=== PATIENT | female | born 1985 | race Caucasian/White ===

== ENCOUNTER 2018-01-22 05:11 | Inpatient (IN) ==
--- NOTE | 2018-01-22 05:37 | Emergency Department Note ---
Disposition Clinical Impression: Suicidal ideation Fracture of fifth metacarpal bone of right hand Qualifiers: Encounter type: initial encounter Fracture type: closed Metacarpal location: neck Fracture alignment: nondisplaced Qualified Code(s): S62.366A - Nondisplaced fracture of neck of fifth metacarpal bone, right hand, initial encounter for closed fracture Disposition: Still a Patient Condition: Good Referrals: NONE,PCP [Primary Care Provider] - Forms: ED Satisfaction Letter Time of Disposition: 07:08 Psych HPI - General Chief Complaint: ED Psychiatric Symptoms Stated Complaint: SI Time Seen by Provider: 01/22/18 05:15 Source: patient Nursing Notes Reviewed: Yes Vital Signs Reviewed: Yes - History of Present Illness HPI Narrative: 32yo female presents from home via EMS for evaluation of suicidal ideation. Patient was in our department with her mother at home. Her sister awoke in her the patient verbalized that she wished to kill herself. She has a plan of overdosing on her medications. She is had 2 prior suicidal attempts by intentional overdose. The patient's anger, she hit a tree with her right hand and now has subsequent right hand pain. She is right-hand dominant. When asked why she was a tree she states that, "it was better than any my mom." She has no homicidal ideation. She has been drinking tonight. She had 2 shots of fireball to help her go to sleep. PMH: Depression, anxiety ROS: Positive: As above Negative: Fever, chills, nausea, vomiting, chest pain, palpitations, headache, changes in vision, abdominal pain, weakness, numbness, tingling - Related Data Allergies Allergy/AdvReac Type Severity Reaction Status Date / Time No Known Allergies Allergy Verified 01/22/18 05:18 All systems ED: reviewed and negative except as stated. Review of Systems: As Per HPI Past Medical History - Past Medical History Medical history: Reports: no medical history Psychiatric history: Reports: anxiety, depression - Social History Smoking Status: Former smoker Alcohol use: Reports: recent Drug use: Reports: prescription drug abuse Physical Exam Vital Signs Reviewed General: Patient is alert, oriented, and in no acute distress. Head: atraumatic, normocephalic Eye: normal appearance, PERRL, EOMI, no scleral icterus, no conjunctival injection ENT: mucous membranes moist, normal external ear exam Neck: normal inspection, trachea midline, full ROM Chest: normal inspection, symmetric chest rise Respiratory: Good respiratory effort. Bilateral breath sounds are clear without wheezing, crackles, or rhonchi. Cardiovascular: Regular rate and rhythm. No clicks, rubs, gallops, or murmors. Normal heart sounds. Abdomen: Bowel sounds present normoactive x-4 quadrants. Abdomen is soft, nondistended, and nontender. No guarding or rebound. No organomegaly noted. Musculoskeletal: Spontaneously moving all extremities. Tenderness over right fifth MCP joint with superficial overlying abrasion. Full range of motion right hand and wrist with finger to thumb opposition intact Skin: warm, dry, intact. Neuro: Alert and oriented x4. Sensation light touch intact. Psych: Patient's affect is appropriate for situation. - General Limitations: no limitations General appearance: alert, in no apparent distress Course Course Narrative: Patient clinically appears intoxicated. Will x-ray right hand and draw appropriate lab work needed for medical clearance. Anticipate prolonged emergency department stay she metabolizes EtOH prior to her evaluation by our mental health team. X-ray right hand shows boxer's fracture. Appropriate splint applied. Splint wrapped and secured with cast padding instead of Ger wrap as, theoretically, patient would be able to hang herself with Ger wrap however, cast padding would break. EtOH drawn at 05:50 is 150. Will redraw at 09:00. Patient has been signed out to the ED team, Dr. Carlson and Dr. Garner. Pending: Repeat EtOH and subsequent mental health evaluation. Final disposition pending mental health evaluation. Hand X-Ray 01/22/18 05:39 IMPRESSION: Acute 5th metacarpal fracture. D/ / Froylan Shafer MD / Froylan Shafer MD Interpreting Provider: Froylan Shafer MD Vital Signs Temperature 99.0 F 01/22/18 05:15 Pulse Rate 117 01/22/18 05:15 Respiratory Rate 16 01/22/18 05:15 Blood Pressure 140/89 01/22/18 05:15 O2 Sat by Pulse Oximetry 96 01/22/18 05:15 Temperature 99.0 F 01/22/18 05:15 Pulse Rate 117 01/22/18 05:15 Respiratory Rate 16 01/22/18 05:15 Blood Pressure 140/89 01/22/18 05:15 O2 Sat by Pulse Oximetry 96 01/22/18 05:15 Oxygen Delivery Oxygen Delivery Room Air Procedures - Orthopedic Splinting/Casting Injury #1 Side: right Upper Extremity Injury Location: hand Upper Extremity Immobilizer: ulnar gutter Psych - Lab Data Result diagrams: 01/22/18 05:27 01/22/18 05:27 Lab Results 01/22/18 01/22/18 01/22/18 Range/Units 05:27 05:27 05:27 WBC (4.3-11.1) K/mcL RBC (3.82-4.97) M/mcL Hgb (11.5-15.4) g/dL Hct (35.3-44.9) % MCV (83.0-100.0) fL MCH (28.0-33.3) pg MCHC (31.6-35.5) g/dL RDW (11.5-14.5) % Plt Count (140-400) K/mcL MPV (9.4-12.4) fL Immature Gran % (0-4) % Seg Neutrophils % % Lymphocytes % % Monocytes % % Eosinophils % % Basophils % % Neutrophils # (1.6-8.9) K/mcL Lymphocytes # (0.6-4.6) K/mcL Monocytes # (0.0-1.3) K/mcL Eosinophils # (0.0-0.6) K/mcL Basophils # (0.0-0.2) K/mcL Sodium (136-145) mEq/L Potassium (3.5-5.1) mEq/L Chloride (98-107) mEq/L Carbon Dioxide (23-29) mEq/L BUN (6-20) mg/dL Creatinine (0.60-1.20) mg/dL Est GFR ( Amer) (> 60) Est GFR (Non-Af Amer) (> 60) BUN/Creatinine Ratio (6-26) Glucose (70-105) mg/dL Calculated Osmolality (280-300) Calcium (8.6-10.3) mg/dL Urine Color Yellow (Yellow) Urine Clarity Clear (Clear) Urine pH 6.5 (5.0-8.0) pH Units Ur Specific [place] 1.012 (1.010-1.025) Urine Protein Negative (Neg-Trace) mg/dL Urine Glucose (UA) Normal (Normal) mg/dL Urine Ketones Negative (Negative) mg/dL Urine Blood Negative (Negative) Urine Nitrite Negative (Negative) Urine Bilirubin Negative (Negative) Urine Urobilinogen Normal (Normal) mg/dL Ur Leukocyte Esterase Negative (Negative) Urine Test Negative (Negative) Salicylates (15.0-30.0) mg/dL Urine Opiates Screen Negative (Vwfaoi=938) ng/mL Acetaminophen (10-20) mcg/mL Ur Barbiturates Screen Negative (Kmuthr=673) ng/mL Ur Phencyclidine Scrn Negative (Cutoff=25) ng/mL Ur Amphetamines Screen Negative (Ggjlfr=2522) ng/mL U Benzodiazepines Scrn Negative (Ozivfu=719) ng/mL Urine Cocaine Screen Negative (Cutoff= 300) ng/mL U Marijuana (THC) Screen Negative (Cutoff = 50) ng/mL Ur Drug Screen Interp See Below Ethyl Alcohol (Less than 10) mg/dL 01/22/18 01/22/18 Range/Units 05:27 05:27 WBC 11.5 H (4.3-11.1) K/mcL RBC 4.81 (3.82-4.97) M/mcL Hgb 15.0 (11.5-15.4) g/dL Hct 45.0 H (35.3-44.9) % MCV 93.6 (83.0-100.0) fL MCH 31.2 (28.0-33.3) pg MCHC 33.3 (31.6-35.5) g/dL RDW 12.5 (11.5-14.5) % Plt Count 379 (140-400) K/mcL MPV 9.7 (9.4-12.4) fL Immature Gran % 0.7 (0-4) % Seg Neutrophils % 57.5 % Lymphocytes % 31.8 % Monocytes % 8.2 % Eosinophils % 0.8 % Basophils % 1.0 % Neutrophils # 6.6 (1.6-8.9) K/mcL Lymphocytes # 3.7 (0.6-4.6) K/mcL Monocytes # 0.9 (0.0-1.3) K/mcL Eosinophils # 0.1 (0.0-0.6) K/mcL Basophils # 0.1 (0.0-0.2) K/mcL Sodium 141 (136-145) mEq/L Potassium 3.7 (3.5-5.1) mEq/L Chloride 110 H (98-107) mEq/L Carbon Dioxide 23 (23-29) mEq/L BUN 4 L (6-20) mg/dL Creatinine 0.76 (0.60-1.20) mg/dL Est GFR ( Amer) > 60 (> 60) Est GFR (Non-Af Amer) > 60 (> 60) BUN/Creatinine Ratio 5 L (6-26) Glucose 101 (70-105) mg/dL Calculated Osmolality 289 (280-300) Calcium 8.9 (8.6-10.3) mg/dL Urine Color (Yellow) Urine Clarity (Clear) Urine pH (5.0-8.0) pH Units Ur Specific [place] (1.010-1.025) Urine Protein (Neg-Trace) mg/dL Urine Glucose (UA) (Normal) mg/dL Urine Ketones (Negative) mg/dL Urine Blood (Negative) Urine Nitrite (Negative) Urine Bilirubin (Negative) Urine Urobilinogen (Normal) mg/dL Ur Leukocyte Esterase (Negative) Urine Test (Negative) Salicylates < 2.5 L (15.0-30.0) mg/dL Urine Opiates Screen (Hoooym=033) ng/mL Acetaminophen < 10 L (10-20) mcg/mL Ur Barbiturates Screen (Glpxzd=615) ng/mL Ur Phencyclidine Scrn (Cutoff=25) ng/mL Ur Amphetamines Screen (Qafmwl=7242) ng/mL U Benzodiazepines Scrn (Yhnosu=627) ng/mL Urine Cocaine Screen (Cutoff= 300) ng/mL U Marijuana (THC) Screen (Cutoff = 50) ng/mL Ur Drug Screen Interp Ethyl Alcohol 150 H (Less than 10) mg/dL Psychiatric Medical Clearance - Medical Clearance Checklist Medical History: No Social History Section defined Current Vitals: Last Vital Signs Temp 99.0 F 01/22/18 05:15 Pulse 117 01/22/18 05:15 Resp 16 01/22/18 05:15 BP 140/89 01/22/18 05:15 Pulse Ox 96 01/22/18 05:15 Psychiatric Lab Panel: Drug Levels and Toxicity 01/22/18 01/22/18 05:27 05:27 Urine Opiates Screen Negative Acetaminophen < 10 L Ur Barbiturates Screen Negative Ur Phencyclidine Scrn Negative Ur Amphetamines Screen Negative U Benzodiazepines Scrn Negative Urine Cocaine Screen Negative U Marijuana (THC) Screen Negative Ethyl Alcohol 150 H Abnormal Labs: Abnormal lab results WBC 11.5 K/mcL (4.3-11.1) H 01/22/18 05:27 Hct 45.0 % (35.3-44.9) H 01/22/18 05:27 Chloride 110 mEq/L (98-107) H 01/22/18 05:27 BUN 4 mg/dL (6-20) L 01/22/18 05:27 BUN/Creatinine Ratio 5 (6-26) L 01/22/18 05:27 Salicylates < 2.5 mg/dL (15.0-30.0) L 01/22/18 05:27 Acetaminophen < 10 mcg/mL (10-20) L 01/22/18 05:27 Ethyl Alcohol 150 mg/dL (Less than 10) H 01/22/18 05:27
[2018-01-22 05:41] LABS: Basophils # 0.1 K/mcL (0.0-0.2); Eosinophils # 0.1 K/mcL (0.0-0.6); Eosinophils % 0.8 %; Immature Granulocytes % 0.7 % (0-4); Lymphocytes # 3.7 K/mcL (0.6-4.6); Lymphocytes % 31.8 %; Mean Corpuscular HGB Conc 33.3 g/dL (31.6-35.5); Mean Corpuscular Hemoglobin 31.2 pg (28.0-33.3); Mean Corpuscular Volume 93.6 fL (83.0-100.0); Mean Platelet Volume 9.7 fL (9.4-12.4); Monocytes # 0.9 K/mcL (0.0-1.3); Monocytes % 8.2 %; Neutrophils # 6.6 K/mcL (1.6-8.9); Platelet Count 379 K/mcL (140-400); Red Blood Count 4.81 M/mcL (3.82-4.97); Red Cell Distribution Width 12.5 % (11.5-14.5); Segmented Neutrophils % 57.5 %
[2018-01-22 05:44] LABS: Bilirubin,Urine Negative (Negative); Blood,Urine Negative (Negative); Clarity,Urine Clear (Clear); Color,Urine Yellow (Yellow); Glucose,Urine (UA) Normal (Normal); Ketones,Urine Negative (Negative); Leukocyte Esterase,Urine Negative (Negative); Nitrite,Urine Negative (Negative); PH,Urine 6.5 pH Units (5.0-8.0); Protein,Urine Negative (Neg-Trace); Specific Gravity,Urine 1.012 (1.010-1.025); Urobilinogen,Urine Normal (Normal)
[2018-01-22 06:10] LABS: Acetaminophen < 10 mcg/mL (10-20); BUN/Creatinine Ratio 5 (6-26); Blood Urea Nitrogen 4 mg/dL (6-20); Calcium 8.9 mg/dL (8.6-10.3); Carbon Dioxide 23 mEq/L (23-29); Chloride 110 mEq/L (98-107); Ethanol 150 mg/dL (Less than 10); Glucose 101 mg/dL (70-105); Osmolality,Calculated 289 (280-300); Potassium 3.7 mEq/L (3.5-5.1); Salicylate < 2.5 mg/dL (15.0-30.0); Sodium 141 mEq/L (136-145); eGFR For Non-African Americans > 60 (> 60)
[2018-01-22 07:03] LABS: Amphetamine Screen,Urine Negative ng/mL (Cutoff=1000); Barbiturate Screen,Urine Negative ng/mL (Cutoff=200); Benzodiazepines Screen,Urine Negative ng/mL (Cutoff=200); Cannabinoid Screen,Urine Negative ng/mL (Cutoff = 50); Cocaine Screen,Urine Negative ng/mL (Cutoff= 300); Opiate Screen,Urine Negative ng/mL (Cutoff=300); Phencyclidine Screen,Urine Negative ng/mL (Cutoff=25)
--- NOTE | 2018-01-22 07:08 | Emergency Department Note ---
Disposition Clinical Impression: Suicidal ideation Fracture of fifth metacarpal bone of right hand Qualifiers: Encounter type: initial encounter Fracture type: closed Metacarpal location: neck Fracture alignment: nondisplaced Qualified Code(s): S62.366A - Nondisplaced fracture of neck of fifth metacarpal bone, right hand, initial encounter for closed fracture Disposition: Still a Patient Condition: Good Referrals: NONE,PCP [Primary Care Provider] - Forms: ED Satisfaction Letter General Adult HPI - General Chief complaint: ED Psychiatric Symptoms Stated complaint: SI Time Seen by Provider: 01/22/18 05:15 Source: patient Limitations: no limitations Nursing Notes Reviewed: Yes Vital Signs Reviewed: Yes - History of Present Illness Pain Scale: 4 - Related Data Allergies Allergy/AdvReac Type Severity Reaction Status Date / Time No Known Allergies Allergy Verified 01/22/18 05:18 Past Medical History - Past Medical History Medical history: Reports: no medical history Psychiatric history: Reports: anxiety, depression - Social History Smoking Status: Former smoker Alcohol use: Reports: recent Drug use: Reports: prescription drug abuse Physical Exam - General Limitations: no limitations General appearance: alert, in no apparent distress Course Vital Signs Temperature 99.0 F 01/22/18 05:15 Pulse Rate 117 01/22/18 05:15 Respiratory Rate 16 01/22/18 05:15 Blood Pressure 140/89 01/22/18 05:15 O2 Sat by Pulse Oximetry 96 01/22/18 05:15 Temperature 99.0 F 01/22/18 05:15 Pulse Rate 117 01/22/18 05:15 Respiratory Rate 16 01/22/18 05:15 Blood Pressure 140/89 01/22/18 05:15 O2 Sat by Pulse Oximetry 96 01/22/18 05:15 Oxygen Delivery Oxygen Delivery Room Air Medical Decision Making - Lab Data Lab results reviewed: Yes I reviewed the patient's lab results. Result diagrams: 01/22/18 05:27 01/22/18 05:27 Lab Results 01/22/18 01/22/18 01/22/18 Range/Units 05:27 05:27 05:27 WBC (4.3-11.1) K/mcL RBC (3.82-4.97) M/mcL Hgb (11.5-15.4) g/dL Hct (35.3-44.9) % MCV (83.0-100.0) fL MCH (28.0-33.3) pg MCHC (31.6-35.5) g/dL RDW (11.5-14.5) % Plt Count (140-400) K/mcL MPV (9.4-12.4) fL Immature Gran % (0-4) % Seg Neutrophils % % Lymphocytes % % Monocytes % % Eosinophils % % Basophils % % Neutrophils # (1.6-8.9) K/mcL Lymphocytes # (0.6-4.6) K/mcL Monocytes # (0.0-1.3) K/mcL Eosinophils # (0.0-0.6) K/mcL Basophils # (0.0-0.2) K/mcL Sodium (136-145) mEq/L Potassium (3.5-5.1) mEq/L Chloride (98-107) mEq/L Carbon Dioxide (23-29) mEq/L BUN (6-20) mg/dL Creatinine (0.60-1.20) mg/dL Est GFR ( Amer) (> 60) Est GFR (Non-Af Amer) (> 60) BUN/Creatinine Ratio (6-26) Glucose (70-105) mg/dL Calculated Osmolality (280-300) Calcium (8.6-10.3) mg/dL Urine Color Yellow (Yellow) Urine Clarity Clear (Clear) Urine pH 6.5 (5.0-8.0) pH Units Ur Specific [place] 1.012 (1.010-1.025) Urine Protein Negative (Neg-Trace) mg/dL Urine Glucose (UA) Normal (Normal) mg/dL Urine Ketones Negative (Negative) mg/dL Urine Blood Negative (Negative) Urine Nitrite Negative (Negative) Urine Bilirubin Negative (Negative) Urine Urobilinogen Normal (Normal) mg/dL Ur Leukocyte Esterase Negative (Negative) Urine Test Negative (Negative) Salicylates (15.0-30.0) mg/dL Urine Opiates Screen Negative (Ticpzy=653) ng/mL Acetaminophen (10-20) mcg/mL Ur Barbiturates Screen Negative (Yjlwry=755) ng/mL Ur Phencyclidine Scrn Negative (Cutoff=25) ng/mL Ur Amphetamines Screen Negative (Ubhctv=8259) ng/mL U Benzodiazepines Scrn Negative (Hhflcz=469) ng/mL Urine Cocaine Screen Negative (Cutoff= 300) ng/mL U Marijuana (THC) Screen Negative (Cutoff = 50) ng/mL Ur Drug Screen Interp See Below Ethyl Alcohol (Less than 10) mg/dL 01/22/18 01/22/18 Range/Units 05:27 05:27 WBC 11.5 H (4.3-11.1) K/mcL RBC 4.81 (3.82-4.97) M/mcL Hgb 15.0 (11.5-15.4) g/dL Hct 45.0 H (35.3-44.9) % MCV 93.6 (83.0-100.0) fL MCH 31.2 (28.0-33.3) pg MCHC 33.3 (31.6-35.5) g/dL RDW 12.5 (11.5-14.5) % Plt Count 379 (140-400) K/mcL MPV 9.7 (9.4-12.4) fL Immature Gran % 0.7 (0-4) % Seg Neutrophils % 57.5 % Lymphocytes % 31.8 % Monocytes % 8.2 % Eosinophils % 0.8 % Basophils % 1.0 % Neutrophils # 6.6 (1.6-8.9) K/mcL Lymphocytes # 3.7 (0.6-4.6) K/mcL Monocytes # 0.9 (0.0-1.3) K/mcL Eosinophils # 0.1 (0.0-0.6) K/mcL Basophils # 0.1 (0.0-0.2) K/mcL Sodium 141 (136-145) mEq/L Potassium 3.7 (3.5-5.1) mEq/L Chloride 110 H (98-107) mEq/L Carbon Dioxide 23 (23-29) mEq/L BUN 4 L (6-20) mg/dL Creatinine 0.76 (0.60-1.20) mg/dL Est GFR ( Amer) > 60 (> 60) Est GFR (Non-Af Amer) > 60 (> 60) BUN/Creatinine Ratio 5 L (6-26) Glucose 101 (70-105) mg/dL Calculated Osmolality 289 (280-300) Calcium 8.9 (8.6-10.3) mg/dL Urine Color (Yellow) Urine Clarity (Clear) Urine pH (5.0-8.0) pH Units Ur Specific [place] (1.010-1.025) Urine Protein (Neg-Trace) mg/dL Urine Glucose (UA) (Normal) mg/dL Urine Ketones (Negative) mg/dL Urine Blood (Negative) Urine Nitrite (Negative) Urine Bilirubin (Negative) Urine Urobilinogen (Normal) mg/dL Ur Leukocyte Esterase (Negative) Urine Test (Negative) Salicylates < 2.5 L (15.0-30.0) mg/dL Urine Opiates Screen (Relhcw=672) ng/mL Acetaminophen < 10 L (10-20) mcg/mL Ur Barbiturates Screen (Iywofp=747) ng/mL Ur Phencyclidine Scrn (Cutoff=25) ng/mL Ur Amphetamines Screen (Binjuy=3628) ng/mL U Benzodiazepines Scrn (Biahgr=367) ng/mL Urine Cocaine Screen (Cutoff= 300) ng/mL U Marijuana (THC) Screen (Cutoff = 50) ng/mL Ur Drug Screen Interp Ethyl Alcohol 150 H (Less than 10) mg/dL - Radiology Data Radiology results reviewed: Yes I reviewed the patient's radiology results. Hand X-Ray 01/22/18 05:39 IMPRESSION: Acute 5th metacarpal fracture. D/ / Froylan Shafer MD / Froylan Shafer MD Interpreting Provider: Froylan Shafer MD Attestation Statement - Attestation Attestation: I, Severino Michael MD, personally evaluated this patient and discussed their management with the resident physician. I reviewed the resident's note and agree with the documented findings, medical decision making, and plan of care. 32-year-old female persisted emergency department by embolus with a complaint of suicidal ideations. Patient has a prior history of suicidal ideation and suicide attempts. She states that she has a plan to take an overdose of pills. She also complains of pain in her right hand after she punched a tree with her fist tonight. On examination patient is a well-developed well-nourished well-appearing female in no acute distress. She is alert and oriented 3. No cyanosis or diaphoresis. Patient pleasant and cooperative. Breath sounds clear and equal bilaterally. Heart regular rate and rhythm. Abdomen soft and nontender with normal bowel sounds. There is some tenderness and swelling over the ulnar aspect of the right hand. X-ray of the right hand shows a boxer's fracture of the fifth metacarpal. An ulnar gutter splint was applied and held in place with cast padding. Labs reviewed. Alcohol 150. At shift change patient is signed out to the oncoming dayshift physician, Dr. Carlson.
--- NOTE | 2018-01-22 07:39 | Emergency Department Note ---
Disposition Clinical Impression: Suicidal ideation Fracture of fifth metacarpal bone of right hand Qualifiers: Encounter type: initial encounter Fracture type: closed Metacarpal location: neck Fracture alignment: nondisplaced Qualified Code(s): S62.366A - Nondisplaced fracture of neck of fifth metacarpal bone, right hand, initial encounter for closed fracture Disposition: Admitted As Inpatient Condition: Good Referrals: NONE,PCP [Primary Care Provider] - Forms: ED Satisfaction Letter Time of Disposition: 10:46 General Adult HPI - General Chief complaint: ED Psychiatric Symptoms Stated complaint: SI Time Seen by Provider: 01/22/18 05:15 Source: patient Limitations: no limitations - History of Present Illness Pain Scale: 4 - Related Data Allergies Allergy/AdvReac Type Severity Reaction Status Date / Time No Known Allergies Allergy Verified 01/22/18 05:18 Past Medical History - Past Medical History Medical history: Reports: no medical history Psychiatric history: Reports: anxiety, depression - Social History Smoking Status: Former smoker Alcohol use: Reports: recent Drug use: Reports: prescription drug abuse Physical Exam - General Limitations: no limitations General appearance: alert, in no apparent distress Course Course Narrative: 32-year-old female presents emergency room for suicidal ideation. Patient is intoxicated. Screening labs were ordered by the attending physicians. See detailed documentation the physical exam and medical recommendations that time. Psychiatric team is pending evaluation and disposition will be determined. Patient otherwise stable and resting comfortably in the bed at this time. Patient does have a splint applied to the extremity at this time secondary to punching a wall. This has soft padding noted at this point with no Ger bandage applied - Reevaluation(s) Reevaluation #1: Patient has been evaluated by the psychiatric team. [place] slip will be applied the patient will be admitted to our facility for continuation of management care. Time: 10:45 Vital Signs Temperature 99.0 F 01/22/18 05:15 Pulse Rate 117 01/22/18 05:15 Respiratory Rate 16 01/22/18 05:15 Blood Pressure 140/89 01/22/18 05:15 O2 Sat by Pulse Oximetry 96 01/22/18 05:15 Temperature 99.0 F 01/22/18 05:15 Pulse Rate 117 01/22/18 05:15 Respiratory Rate 16 01/22/18 05:15 Blood Pressure 140/89 01/22/18 05:15 O2 Sat by Pulse Oximetry 96 01/22/18 05:15 Oxygen Delivery Oxygen Delivery Room Air Medical Decision Making - MDM Narrative Medical decision making narrative: Intoxication, suicidal ideation - Medical Records Medical records reviewed: Yes I reviewed the patient's medical records. - Lab Data Lab results reviewed: Yes I reviewed the patient's lab results. Result diagrams: 01/22/18 05:27 01/22/18 05:27 Lab Results 01/22/18 01/22/18 01/22/18 Range/Units 05:27 05:27 05:27 WBC (4.3-11.1) K/mcL RBC (3.82-4.97) M/mcL Hgb (11.5-15.4) g/dL Hct (35.3-44.9) % MCV (83.0-100.0) fL MCH (28.0-33.3) pg MCHC (31.6-35.5) g/dL RDW (11.5-14.5) % Plt Count (140-400) K/mcL MPV (9.4-12.4) fL Immature Gran % (0-4) % Seg Neutrophils % % Lymphocytes % % Monocytes % % Eosinophils % % Basophils % % Neutrophils # (1.6-8.9) K/mcL Lymphocytes # (0.6-4.6) K/mcL Monocytes # (0.0-1.3) K/mcL Eosinophils # (0.0-0.6) K/mcL Basophils # (0.0-0.2) K/mcL Sodium (136-145) mEq/L Potassium (3.5-5.1) mEq/L Chloride (98-107) mEq/L Carbon Dioxide (23-29) mEq/L BUN (6-20) mg/dL Creatinine (0.60-1.20) mg/dL Est GFR ( Amer) (> 60) Est GFR (Non-Af Amer) (> 60) BUN/Creatinine Ratio (6-26) Glucose (70-105) mg/dL Calculated Osmolality (280-300) Calcium (8.6-10.3) mg/dL Urine Color Yellow (Yellow) Urine Clarity Clear (Clear) Urine pH 6.5 (5.0-8.0) pH Units Ur Specific [place] 1.012 (1.010-1.025) Urine Protein Negative (Neg-Trace) mg/dL Urine Glucose (UA) Normal (Normal) mg/dL Urine Ketones Negative (Negative) mg/dL Urine Blood Negative (Negative) Urine Nitrite Negative (Negative) Urine Bilirubin Negative (Negative) Urine Urobilinogen Normal (Normal) mg/dL Ur Leukocyte Esterase Negative (Negative) Urine Test Negative (Negative) Salicylates (15.0-30.0) mg/dL Urine Opiates Screen Negative (Fjazpq=934) ng/mL Acetaminophen (10-20) mcg/mL Ur Barbiturates Screen Negative (Zbmkrp=838) ng/mL Ur Phencyclidine Scrn Negative (Cutoff=25) ng/mL Ur Amphetamines Screen Negative (Akqltg=6106) ng/mL U Benzodiazepines Scrn Negative (Vzdtxf=278) ng/mL Urine Cocaine Screen Negative (Cutoff= 300) ng/mL U Marijuana (THC) Screen Negative (Cutoff = 50) ng/mL Ur Drug Screen Interp See Below Ethyl Alcohol (Less than 10) mg/dL 01/22/18 01/22/18 01/22/18 Range/Units 05:27 05:27 09:08 WBC 11.5 H (4.3-11.1) K/mcL RBC 4.81 (3.82-4.97) M/mcL Hgb 15.0 (11.5-15.4) g/dL Hct 45.0 H (35.3-44.9) % MCV 93.6 (83.0-100.0) fL MCH 31.2 (28.0-33.3) pg MCHC 33.3 (31.6-35.5) g/dL RDW 12.5 (11.5-14.5) % Plt Count 379 (140-400) K/mcL MPV 9.7 (9.4-12.4) fL Immature Gran % 0.7 (0-4) % Seg Neutrophils % 57.5 % Lymphocytes % 31.8 % Monocytes % 8.2 % Eosinophils % 0.8 % Basophils % 1.0 % Neutrophils # 6.6 (1.6-8.9) K/mcL Lymphocytes # 3.7 (0.6-4.6) K/mcL Monocytes # 0.9 (0.0-1.3) K/mcL Eosinophils # 0.1 (0.0-0.6) K/mcL Basophils # 0.1 (0.0-0.2) K/mcL Sodium 141 (136-145) mEq/L Potassium 3.7 (3.5-5.1) mEq/L Chloride 110 H (98-107) mEq/L Carbon Dioxide 23 (23-29) mEq/L BUN 4 L (6-20) mg/dL Creatinine 0.76 (0.60-1.20) mg/dL Est GFR ( Amer) > 60 (> 60) Est GFR (Non-Af Amer) > 60 (> 60) BUN/Creatinine Ratio 5 L (6-26) Glucose 101 (70-105) mg/dL Calculated Osmolality 289 (280-300) Calcium 8.9 (8.6-10.3) mg/dL Urine Color (Yellow) Urine Clarity (Clear) Urine pH (5.0-8.0) pH Units Ur Specific [place] (1.010-1.025) Urine Protein (Neg-Trace) mg/dL Urine Glucose (UA) (Normal) mg/dL Urine Ketones (Negative) mg/dL Urine Blood (Negative) Urine Nitrite (Negative) Urine Bilirubin (Negative) Urine Urobilinogen (Normal) mg/dL Ur Leukocyte Esterase (Negative) Urine Test (Negative) Salicylates < 2.5 L (15.0-30.0) mg/dL Urine Opiates Screen (Jtahbt=539) ng/mL Acetaminophen < 10 L (10-20) mcg/mL Ur Barbiturates Screen (Mwlkcy=898) ng/mL Ur Phencyclidine Scrn (Cutoff=25) ng/mL Ur Amphetamines Screen (Qxpktp=7435) ng/mL U Benzodiazepines Scrn (Tgkpzh=717) ng/mL Urine Cocaine Screen (Cutoff= 300) ng/mL U Marijuana (THC) Screen (Cutoff = 50) ng/mL Ur Drug Screen Interp Ethyl Alcohol 150 H 68 H (Less than 10) mg/dL - Radiology Data Radiology results reviewed: Yes I reviewed the patient's radiology results. X-ray shows fifth metatarsal fracture consistent with a boxer's injury
[2018-01-22] MEDS ORDERED: MOM Conc 10 ML UD.LIQ PO PRN (11:55)
[2018-01-22] MEDS ORDERED: *HR* LORazepam 1 MG TABLET PO PRN (11:55)
[2018-01-22] MEDS ORDERED: *HR* LORazepam 2 MG/ML VIAL IM PRN (11:55)
[2018-01-22] MEDS ORDERED: Mag Hydrox/Al Hydrox/Simeth 30 ML UDC PO PRN (11:55)
[2018-01-22] MEDS ORDERED: Haloperidol Lactate 5 MG/ML VIAL IM PRN (11:55)
[2018-01-22] MEDS: traZODone 50 MG TABLET PO PRN (20:50)
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
[2018-01-23] MEDS: Ibuprofen 400 MG TABLET PO PRN (12:30)
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
[2018-01-23] MEDS: traZODone 50 MG TABLET PO PRN (20:39)
[2018-01-24] MEDS: Ibuprofen 400 MG TABLET PO PRN ×2 (08:56→17:03)
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
[2018-01-24] MEDS: traZODone 50 MG TABLET PO PRN (20:44)
[2018-01-24] MEDS: hydrOXYzine pamoate 25 MG CAPSULE PO PRN (20:45)
--- NOTE | 2018-01-25 07:28 | Orthopedics Progress Note ---
Date of Encounter: 01/25/18 Time of Encounter: 07:24 - Assessment and Plan (1) Fracture of fifth metacarpal bone of right hand Current Visit: Yes Status: Acute Qualifiers: Encounter type: initial encounter Fracture type: closed Metacarpal location: neck Fracture alignment: nondisplaced Qualified Code(s): S62.366A - Nondisplaced fracture of neck of fifth metacarpal bone, right hand, initial encounter for closed fracture Subjective Interval history: S: The patient is resting comfortably in bed. She has no complaint. No pain to the right small finger. Yesterday she wished to proceed with closed reduction and casting of the right small finger midcarpal neck and at that 10 mL of 1% plain lidocaine were injected into the fracture site and a closed reduction maneuver was performed followed by placement of an ulnar gutter cast which was molded. She tolerated this well. O: Afebrile on the vital signs are stable Right ulnar gutter cast is in good position and fits nicely Fingers outside of the cast are freely mobile, sensate, and well-perfused A: Right small finger metacarpal neck fracture post-closed reduction and ulnar gutter casting' P: I will order an x-ray of the right hand to check position of the metacarpal neck fracture Nonweightbearing to the right upper extremity Orthopedically stable for discharge Follow-up with me in the office in 2 weeks for cast off and x-rays. Objective Vital signs: Vital Signs Temp Pulse Resp BP 01/24/18 20:05 99.1 F 88 16 141/97 01/24/18 09:00 98.0 F 99 18 125/94 Intake and Output 01/24/18 01/24/18 01/25/18 15:59 23:59 07:59 Other: Meal Lunch Dinner Percent of Meal Consumed 100% 100% - Labs CBC & BMP: 01/22/18 05:27 01/22/18 05:27 Labs: Abnormal lab results WBC 11.5 K/mcL (4.3-11.1) H 01/22/18 05:27 Hct 45.0 % (35.3-44.9) H 01/22/18 05:27 Chloride 110 mEq/L (98-107) H 01/22/18 05:27 BUN 4 mg/dL (6-20) L 01/22/18 05:27 BUN/Creatinine Ratio 5 (6-26) L 01/22/18 05:27 Salicylates < 2.5 mg/dL (15.0-30.0) L 01/22/18 05:27 Acetaminophen < 10 mcg/mL (10-20) L 01/22/18 05:27 Ethyl Alcohol 68 mg/dL (Less than 10) H 01/22/18 09:08 - VTE Reasons for not Prescribing Prophylaxis: Treatment not Indicated - Low risk for VTE Consult Discharge Plan - Plan Additional Instructions: Plan for pt to follow up with outpt mental health and return home to live with sister. Discharge date pending. Referrals: NONE,PCP [Primary Care Provider] -
[2018-01-25] MEDS ORDERED: traZODone 50 MG TABLET PO PRN (09:59)
--- NOTE | 2018-01-25 10:02 | Psychiatry Progress Note ---
Date of Encounter: 01/25/18 Time of Encounter: 09:30 Subjective Interval history: Pt is a 32 yo, , female, x1, x1, with no children who presents for mood and depression. Pt noted that she feels she is improving slowly. Pt noted she is currently living in [place], [place] with her sister and her sisters boyfriend. Pt denied any side effects to current medications. Pt noted she felt safe and comfortable on the unit. Pt remains in agreement with treatment plan. Pt noted that she is doing pretty good today. Pt noted she slept broken 6 hours last night. Pt noted her appetite is pretty good. Pt rated her depression a 3, on a scale of zero to ten with ten being the worst and zero being none. Pt rate her anxiety a 6, on the same scale. Pt denied any auditory or visual hallucinations. Pt denied any thoughts to harm herself or anyone else. Pt concerned with contacting her sister due to in ability to track down her cell phone. Tobacco: Denies Alcohol: occasianlly once/twice per month Street: Denies Caffeine: a few per day 1.Interval hx 2.Continue current medications 3.Review current labs 4.Pt had an opportunity to ask questions and discuss current treatment plan. 5.Supportive therapy was provided 6.Pt encouraged to consider group or individual therapy 7.Pt was in agreement with treatment plan. 8.Pt was educated on the risks benefits and side effects of current medications. Review of Systems Constitutional: Denies: fever, chills, weakness, weight change Eyes: Denies: eye pain, vision change Ears, Nose, Throat: Denies: ear pain, throat pain, dental pain, hearing loss, congestion Cardiovascular: Denies: chest pain, palpitations, dyspnea on exertion Respiratory: Denies: cough, dyspnea, wheezes Gastrointestinal: Denies: abdominal pain, nausea, vomiting, diarrhea, constipation Musculoskeletal: Denies: joint swelling, joint pain Neurological: Denies: headache, weakness, numbness, memory loss Psychiatric: Reports: depression, anxiety, abnormal sleep pattern, suicidal ideation, change in appetite, hopelessness, irritability Results - Vital Signs Vital Signs: Temp Pulse Resp BP Pulse Ox 99.1 F 88 16 141/97 96 01/24/18 20:05 01/24/18 20:05 01/24/18 20:05 01/24/18 20:05 01/22/18 05:15 Assessment and Plan (1) Suicidal ideation Current visit: Yes Status: Acute Plan: Continue hospitalization, Close observation, Suicide Precautions per unit protocol, Encourage participation in unit milieu, Group Therapy, Monitor sleep, Monitor appetite Risks, benefits, side effects, alternatives discussed w/pt: Yes Patient agreeable to treatment: Yes (2) Fracture of fifth metacarpal bone of right hand Current visit: Yes Status: Acute Plan: Continue hospitalization, Close observation, Suicide Precautions per unit protocol, Encourage participation in unit milieu, Group Therapy, Monitor sleep, Monitor appetite Risks, benefits, side effects, alternatives discussed w/pt: Yes Patient agreeable to treatment: Yes Qualifiers: Encounter type: initial encounter Fracture type: closed Metacarpal location: neck Fracture alignment: nondisplaced Qualified Code(s): S62.366A - Nondisplaced fracture of neck of fifth metacarpal bone, right hand, initial encounter for closed fracture (3) Major depressive disorder, recurrent Current visit: Yes Status: Acute Plan: Continue hospitalization, Close observation, Suicide Precautions per unit protocol, Encourage participation in unit milieu, Group Therapy, Monitor sleep, Monitor appetite Risks, benefits, side effects, alternatives discussed w/pt: Yes Patient agreeable to treatment: Yes Qualifiers: Active/Remission status: currently active Major depression episode severity : severe Psychotic features: without psychotic features Qualified Code(s): F33.2 - Major depressive disorder, recurrent severe without psychotic features Consult Discharge Plan - Plan Additional Instructions: Plan for pt to follow up with out mental health and return home to live with sister. Discharge date pending. Referrals: NONE,PCP [Primary Care Provider] - Psychiatry Exam - Constitutional Vitals: Temp Pulse Resp BP Pulse Ox 99.1 F 88 16 141/97 96 01/24/18 20:05 01/24/18 20:05 01/24/18 20:05 01/24/18 20:05 01/22/18 05:15 General appearance: age & developmentally appropriate, well-groomed, well- nourished - Musculoskeletal Gait: normal Station: relaxed Strength & Tone: normal for patient - Psychiatric Patient Orientation: Yes Person, Yes Time, Yes Place Level of alertness: Alert Behavior: calm, cooperative Psychomotor activity: Normal Eye Contact: Maintains Eye Contact Mood Description: Euthymic/stable Affect description: congruent with mood, full range Speech Volume: Normal Speech pattern: normal rate, normal rhythm, normal tone, fluent, spontaneous Language & Vocabulary: consistent with education Thought Process: Linear, Goal Oriented Thought Content: No Suicidal ideation, No Homicidal ideation, No Overt delusions Perceptual Disturbances: No Auditory hallucinations, No Visual hallucinations Attention Span Ability: Capable of Focused Attention Memory Description: Grossly Intact Patient Reliability: Reliable Historian Fund of knowledge: Yes abstraction ability, Yes aware of current events Intelligence Estimate: Average Judgment: Limited Insight: Partial
[2018-01-25] MEDS: Loratadine 10 MG TABLET PO SCH (12:01)
[2018-01-25] MEDS: Ibuprofen 400 MG TABLET PO PRN (14:01)
[2018-01-25] MEDS: hydrOXYzine pamoate 25 MG CAPSULE PO PRN (20:57)
[2018-01-26] MEDS: Loratadine 10 MG TABLET PO SCH (08:52)
[2018-01-26] MEDS: Ibuprofen 400 MG TABLET PO PRN (08:52)
--- NOTE | 2018-01-26 09:18 | Discharge Summary ---
Date of Encounter: 01/26/18 Time of Encounter: 09:00 Diagnosis - Discharge Diagnosis (1) Suicidal ideation Status: Acute (2) Fracture of fifth metacarpal bone of right hand Status: Acute Qualifiers: Encounter type: initial encounter Fracture type: closed Metacarpal location: neck Fracture alignment: nondisplaced Qualified Code(s): S62.366A - Nondisplaced fracture of neck of fifth metacarpal bone, right hand, initial encounter for closed fracture (3) Major depressive disorder, recurrent Status: Acute Qualifiers: Active/Remission status: currently active Major depression episode severity : severe Psychotic features: without psychotic features Qualified Code(s): F33.2 - Major depressive disorder, recurrent severe without psychotic features Medications - Discharge Medications Prescriptions: hydrOXYzine pamoate [HydrOXYzine Pamoate] 25 mg PO TID PRN #90 capsule PRN Reason: Anxiety Loratadine [Claritin] 10 mg PO DAILY #30 tablet Sertraline [Zoloft] 50 mg PO DAILY #30 tablet traZODone [TraZODone] 100 mg PO HS PRN #30 tablet PRN Reason: Insomnia Loratadine [Claritin] 10 mg PO DAILY #30 tablet 01/26/18 [Rx] Sertraline [Zoloft] 50 mg PO DAILY #30 tablet 01/26/18 [Rx] hydrOXYzine pamoate [HydrOXYzine Pamoate] 25 mg PO TID PRN #90 capsule 01/26/18 [Rx] traZODone [TraZODone] 100 mg PO HS PRN #30 tablet 01/26/18 [Rx] 3 Allergy/AdvReac Type Severity Reaction Status Date / Time No Known Allergies Allergy Verified 01/22/18 10:51 Results Procedures and tests throughout hospitalization: Completed Imaging Orders Category Date Time Status XR hand 3V RT [XR] Stat Exams 01/25/18 15:29 Completed - Impressions Impressions Hand X-Ray 01/25/18 15:29 IMPRESSION: Stable fracture of the distal 5th metacarpal with apex dorsal angulation. D/ / Nino Cope MD / Nino Cope MD Interpreting Provider: Nino Cope MD Provider Date of admission: 01/22/18 10:45 Primary care physician: PCP NONE Consults: 01/23/18 09:59 Consult to Physician [CONS] Routine Consulting Provider: Dwain Quezada Reason for Consult: Pt has a fracture of the right hand and is loosly wrapped in cast padding. Needs assessment for a cast, Psychiatrist concerned that poor healing or deformity may occur if not appropriately splinted or casted Call Completed: No Discharging clinician: Marty Felix Psychiatry Exam - Constitutional Vitals: Temp Pulse Resp BP Pulse Ox 98.2 F 98 18 135/92 97 01/25/18 20:22 01/25/18 20:22 01/25/18 20:22 01/25/18 20:22 01/25/18 10:11 General appearance: age & developmentally appropriate, well-groomed, well- nourished - Musculoskeletal Gait: normal Station: relaxed Strength & Tone: normal for patient - Psychiatric Patient Orientation: Yes Person, Yes Time, Yes Place Level of alertness: Alert Behavior: calm, cooperative Psychomotor activity: Normal Eye Contact: Maintains Eye Contact Mood Description: Euthymic/stable Affect description: congruent with mood, full range Speech Volume: Normal Speech pattern: normal rate, normal rhythm, normal tone, fluent, spontaneous Language & Vocabulary: consistent with education Thought Process: Linear, Goal Oriented Thought Content: No Suicidal ideation, No Homicidal ideation, No Overt delusions Perceptual Disturbances: No Auditory hallucinations, No Visual hallucinations Attention Span Ability: Capable of Focused Attention Memory Description: Grossly Intact Patient Reliability: Reliable Historian Fund of knowledge: Yes abstraction ability, Yes aware of current events Intelligence Estimate: Average Judgment: Limited Insight: Partial Hospital Course Hospital course: Ms. Bradshaw is a 32 year old female Time spent discussing smoking cessation with patient: 3 to 10 minutes Does patient wish to continue nicotine replacement upon disc: No - Time Spent with Patient Total time spent providing and/or coordinating discharge services: Greater than 30 minutes Assessment and Plan - Patient/Caregiver Discharge Instructions Activity: resume usual activities as tolerated Diet: regular diet - Follow up Plan Follow up with: [facility] [Outside] - 01/31/18 1:15 pm (The above appointment is with Dr. Alonzo for primary health care and medication management services. Dr. Alonzo will also refer you to the counselor in the office after meeting with you the first time. Please arrive 15 minutes early for your new patient appointment, and bring the following items with you: insurance card (if you do not have insurance bring proof of income to apply for the sliding fee scale), photo ID, and any medication you take in the original bottles. If you are unable to bring these items, your appointment will be rescheduled. If you are unable to keep this appointment, 24 hour business notice of cancellation is expected. If you miss your new patient appointment, you cannot be re-scheduled in this practice for 3 months. This practice does not prescribe narcotics or see [facility] benefit recipients. ) [facility] [Outside] - 03/15/18 2:00 pm (The above appointment is with for outpatient psychiatric assessment and medication management services. Please arrive 15 minutes early to complete paperwork. Please bring your insurance card, photo ID and medications in their original bottles. If you do not have insurance, bring proof of income to apply for the sliding fee scale. If you are unable to keep this appointment, 24 hour business notice of cancellation is expected. The above appointment(s) reflects first availability. You may contact the office regularly to check for cancellations that may allow you to be seen sooner.) Overall status at discharge: Stable Disposition: Home, Self-Care Quality - Multiple Antipsychotics Patient discharged on 2 or more antipsychotic medications: No - Justification Documentation of: No documentation of justification (pt note on antipsychotic) Procedures - Procedures Procedures: Medication Management, Crisis Stabilization, Supportive Therapy, Group Therapy, Psychoeducational Therapy
[2018-01-26 11:01] VITALS: BP 138/90
== END 2018-01-26 13:30 | disposition home or self-care (01) | DRG 751 ==
LOC: EMEROOARM 05:11 → 1ANU 10:45
PROVIDERS: ADMIT Psychiatry & Neurology Psychiatry; ATTEND Psychiatry & Neurology Psychiatry